=== PATIENT | female | born 1945 | race Caucasian/White ===

== ENCOUNTER 2016-12-29 13:33 | Emergency (ER) | payer MEDICARE, BC ==
[~2016-12-29] VITALS: Ht 162.6 cm; Wt 58.1 kg
[2016-12-29] MEDS ORDERED: OMEP20TA20 PO (13:44)
[2016-12-29] MEDS ORDERED: SIMV10TA6 PO (13:44)
--- NOTE | 2016-12-29 14:22 | NUR ---
pt was evaluated by dr salinas. pt was d/c to home. d/c instructions given to the pt.
[2016-12-29 14:23] VITALS: BP 141/83
== END 2016-12-29 14:24 | disposition home or self-care (01) ==
LOC: ER 13:33
DX: M20.011 Mallet finger of right finger(s) (principal); Z88.0 Allergy status to penicillin
CPT/HCPCS: 29130; 73130; 99284; A4663

== ENCOUNTER 2019-04-26 09:55 | Emergency (ER) | payer MEDICARE, BC ==
[~2019-04-26] VITALS: Ht 162.6 cm; Wt 58.5 kg
[~2019-04-26 09:55] MED LIST: OMEP20TA20 PO; SIMV10TA6 PO
[2019-04-26] MEDS ORDERED: TDAP DIPH,PERTUSS,TET VAC/PF 0.5 ML DISP.SYRIN IM ONE (10:15)
--- NOTE | 2019-04-26 10:26 | NUR ---
PATIENT WAS SEEN BY MD. XRAYS DONE. PATIENT STATED SHE DID NOT WANT THE TETENUS SHOT. DC AND FOLLOW UP INSTRUCTIONS GIVEN AND EXPLAINED TO PATIENT WHO STATES SHE UNDERSTANDS ALL INSTRUCTIONS.
== END 2019-04-26 10:34 | disposition home or self-care (01) ==
LOC: ER 09:57
DX: S60.052A Contusion of left little finger without damage to nail, initial encounter (principal); S60.042A Contusion of left ring finger without damage to nail, initial encounter; S80.212A Abrasion, left knee, initial encounter; S80.211A Abrasion, right knee, initial encounter; Z88.0 Allergy status to penicillin; Z79.899 Other long term (current) drug therapy; W01.0XXA Fall on same level from slipping, tripping and stumbling without subsequent striking against object, initial encounter; Y93.89 Activity, other specified; Y92.89 Other specified places as the place of occurrence of the external cause; Y99.8 Other external cause status
CPT/HCPCS: 73130; A4663

== ENCOUNTER 2021-02-01 09:12 | Emergency (ER) | payer MEDICARE, BC ==
[~2021-02-01] VITALS: Ht 162.6 cm; Wt 54.4 kg
[~2021-02-01 09:12] MED LIST changes: -SIMV10TA6 PO; +SIMV10TA98 PO
--- NOTE | 2021-02-01 10:17 | NUR ---
Dr Mejia at the bedside for MSE.
--- NOTE | 2021-02-01 10:17 | NUR ---
Female licensed psychiatric technician accompanied female patient for (Dr Mejia).
--- NOTE | 2021-02-01 10:26 | NUR ---
Small chin laceration cleased w/ saline and dressing placed.
[2021-02-01] MEDS ORDERED: TDAP DIPH,PERTUSS,TET VAC/PF 0.5 ML DISP.SYRIN IM ONE ×2 (10:30→10:31)
[2021-02-01 10:46] VITALS: BP 122/65
--- NOTE | 2021-02-01 10:46 | NUR ---
Patient discharged to home in stable condition. Written and verbal after care instructions given. Patient verbalizes understanding of instructions. Stressed follow up or return to ER for worsening s/s. Pt left ER w/ steady gait.
== END 2021-02-01 10:47 | disposition home or self-care (01) ==
LOC: ER 09:12
DX: S01.81XA Laceration without foreign body of other part of head, initial encounter (principal); S80.02XA Contusion of left knee, initial encounter; S20.02XA Contusion of left breast, initial encounter; W18.39XA Other fall on same level, initial encounter; Y93.89 Activity, other specified; Y92.520 Airport as the place of occurrence of the external cause; Z88.0 Allergy status to penicillin
CPT/HCPCS: 90715; A4663